=== PATIENT | male | born 1975 | race Two or more races ===

== ENCOUNTER 2025-07-02 19:24 | Emergency (ER) | payer OTHER | END 2025-07-02 20:20 | disposition home or self-care (01) | LOC: LB.ED 19:24 | DX: S61.214A Laceration without foreign body of right ring finger without damage to nail, initial encounter (principal); Z91.041 Radiographic dye allergy status; Z79.82 Long term (current) use of aspirin; W26.0XXA Contact with knife, initial encounter; Y93.89 Activity, other specified | CPT/HCPCS: 12001; 99282; 99283 ==